=== PATIENT | male | born 1940 | race Caucasian/White ===

== ENCOUNTER 2017-02-13 05:58 | Day surgery (SDC) | payer MEDICARE, OTHER ==
[2017-02-13] MEDS ORDERED: Dextrose 5%-0.45% NaCl 1,000 ML IV SCH (06:00)
[2017-02-13] MEDS ORDERED: Sodium Chloride 0.9% 10 ML Syringe FLUSH PRN (06:00)
[2017-02-13] MEDS ORDERED: fentaNYL 100 MCG/2 ML SDV ONE (06:19)
[2017-02-13] MEDS ORDERED: Midazolam 1 MG/ML 2 ML SDV ONE (06:19)
[2017-02-13] MEDS ORDERED: fentaNYL 100 MCG/2 ML SDV IV ONE ×3 (07:11→13:19)
[2017-02-13] MEDS ORDERED: Midazolam 1 MG/ML 2 ML SDV IV ONE ×7 (07:12→13:19)
[2017-02-13 09:30] VITALS: BP 115/59
--- NOTE | 2017-02-13 11:27 | OR ---
DATE: 02/13/2017 PROCEDURE: Total colonoscopy, NBI, and cold snare polypectomy. INSTRUMENT USED: CF-H180AL Olympus video colonoscope. PREMEDICATIONS: Fentanyl 100 mcg intravenous, Versed 3.5 mg intravenous, nasal O2 cannula. The procedure was done under pulse oximetry, BP recording, and cardiac catheterization technician. INDICATION: The patient with persistent abdominal symptoms and iron-deficiency anemia. Colonoscopic examination is done for detection of any polypoid lesions and removal, endoscopic hemostasis therapy if needed. DESCRIPTION OF PROCEDURE: Initial rectal exam was unremarkable. Rigid anoscopy was normal. The colonoscope was passed with ease. Few scattered diverticula were noted in the distal left colon along with deformity. The colon was found to be tortuous and redundant. The scope was passed with ease up to the ileocecal area, photographs were taken of the cecum showing diminutive benign- appearing polyp, NBI views were obtained, cold snare polypectomy was done, the tissue was retrieved and sent for histopathology. No bleeding was noted from any of the visualized areas at the commencement of the examination. No stricture. No vascular ectasia. No large isolated ulcerations seen. No evidence of diffuse inflammatory bowel disease in the form of friability, contact bleeding, or ulcerations. Probing the proximal sides of folds and flexures, using adequate distention and clearing up the stool material, withdrawal of the scope was made, cecum to rectum time over 6 minutes. No bleeding was noted from any of the visualized areas at the completion of examination. IMPRESSION: 1. Diverticulosis. 2. Diminutive cecal polyp. The patient tolerated the procedure well. [facility] /[id number]
--- NOTE | 2017-02-13 11:48 | LETTER ---
02/13/2017 James Quick [address] [place], [place] [id number] RE: STANLEY REN : [address] Quick: Mr. Stanley Ren had colonoscopic examination done this morning, and he tolerated the procedure well. I herewith send a copy of the endoscopy note and photographs for your review. Thank you, Sincerely, [facility] /[id number]
== END 2017-02-13 09:46 | disposition home or self-care (01) ==
LOC: DL.ENDO 05:58
PROVIDERS: ATTEND Internal Medicine Gastroenterology
DX: K51.40 Inflammatory polyps of colon without complications (principal); K57.30 Diverticulosis of large intestine without perforation or abscess without bleeding
CPT/HCPCS: 45385; J2250; J3010; J7042; 88305

== ENCOUNTER 2017-02-18 06:23 | Day surgery (SDC) | payer MEDICARE, OTHER ==
[~2017-02-18 06:23] MED LIST: Midazolam 1 MG/ML 2 ML SDV ONE; fentaNYL 100 MCG/2 ML SDV ONE
[2017-02-18] MEDS ORDERED: fentaNYL 100 MCG/2 ML SDV IV ONE ×3 (06:24→07:47)
[2017-02-18] MEDS ORDERED: Midazolam 1 MG/ML 2 ML SDV IV ONE ×4 (06:24→07:49)
[2017-02-18] MEDS ORDERED: Sodium Chloride 0.9% 10 ML Syringe FLUSH PRN (07:00)
[2017-02-18] MEDS ORDERED: Dextrose 5%-0.45% NaCl 1,000 ML IV SCH (07:00)
--- NOTE | 2017-02-18 08:56 | OR ---
DATE: 02/18/2017 PROCEDURE: Esophagogastroduodenoscopy and multiple pinch biopsies. INSTRUMENT USED: GIF-H180 Olympus video endoscope. PREMEDICATIONS: No oral topical anesthesia used, fentanyl 100 mcg intravenous, Versed 2 mg intravenous. Nasal 2 L O2 cannula. The procedure was done under pulse oximetry, BP recording, and awning hanger supervisor. INDICATION: The patient with iron-deficiency anemia, on long-term Plavix. Esophagogastroduodenoscopy is performed for detection of any active erosive lesions, Juarez's esophagus and/or malignancy also under consideration, H. pylori status to be determined, small bowel biopsies to be obtained for celiac disease if indicated, endoscopic hemostasis therapy if needed. DESCRIPTION OF PROCEDURE: The scope was passed with ease. Adequate visualization of the esophagus was made from proximal to distal areas. No upper esophageal lesions identified. No distal esophageal stricture. No uphill or downhill esophageal viruses. No Mary-Gordon tear. No evidence of erosive esophagitis by Laclede criteria. No esophageal polyp or tumor mass identified. Sliding hiatal hernia was noted. No proximal gastric varices noted. Gastric fundus examination by retroflexion showed no polypoid lesions. No gastric ulcer, malignant mass, or vascular ectasia identified. Considerable deformity was noted in the pre-pyloric area. Duodenal bulb showed no ulcer. Visualized second part of the duodenum was unremarkable. Multiple pinch biopsies 4 in number were taken from different areas of the second part of the duodenum and tissues were also obtained from 9 and 12 o'clock positions from the duodenal bulb, and sent for any histopathologic evidence of celiac disease. Multiple pinch biopsies were taken from the gastric antrum and proximal body and sent for PyloriTek test for H. pylori and histopathology. No bleeding was noted from any of the visualized areas at the completion of examination. Photographs were taken of the duodenal bulb, gastric antrum, fundus, and distal esophagus. IMPRESSION: Sliding hiatal hernia. The patient tolerated the procedure well. [facility] /[id number]
[2017-02-18 10:05] VITALS: BP 113/58
--- NOTE | 2017-02-18 10:59 | LETTER ---
02/18/2017 Anmol Quick MD [address] [place] [id number] RE: STANLEY REN Katie : [address] Quick: Mr. Stanley Ren had esophagogastroduodenoscopy done this morning and he tolerated the procedure well. I herewith send a copy of the endoscopy note and photographs for your review. Thank you. Sincerely, [facility] /[id number]
== END 2017-02-18 10:05 | disposition home or self-care (01) ==
LOC: DL.ENDO 06:23
PROVIDERS: ATTEND Internal Medicine Gastroenterology
DX: K44.9 Diaphragmatic hernia without obstruction or gangrene (principal); D50.9 Iron deficiency anemia, unspecified; I25.10 Atherosclerotic heart disease of native coronary artery without angina pectoris; E66.09 Other obesity due to excess calories; I10 Essential (primary) hypertension; E78.00 Pure hypercholesterolemia, unspecified; N40.0 Benign prostatic hyperplasia without lower urinary tract symptoms; D69.6 Thrombocytopenia, unspecified; Z79.82 Long term (current) use of aspirin; Z79.899 Other long term (current) drug therapy; Z95.5 Presence of coronary angioplasty implant and graft; Z90.49 Acquired absence of other specified parts of digestive tract
CPT/HCPCS: 43239; 87077; 88305; J2250; J3010; J7042